=== PATIENT | female | born 1970 | race Caucasian/White ===

== ENCOUNTER 2016-09-22 10:30 | Emergency (ER) | payer OTHER ==
[~2016-09-22] VITALS: Ht 149.9 cm; Wt 39.5 kg
[2016-09-22] MEDS ORDERED: IPRATROPIUM 0.5MG/ALBUTEROL 2.5MG INH SOL UD 3ML (DUONEB)(J7620) NEB ONE (11:45)
--- NOTE | 2016-09-22 13:10 | REP ---
TWO VIEW CHEST: Two views of the chest are performed. Comparison: 06/09/2014 and 06/07/2012. There is no acute infiltrate. There is mild bibasilar interstitial fibrotic change. Somewhat nodular opacities seen along the left heart border 8 mm in diameter. Heart is normal in size. Mediastinal silhouette is otherwise unremarkable. There is mild curvature of the thoracic spine. IMPRESSION: No acute infiltrate. Possible 8 mm nodular opacity along the left heart border. Recommend followup CT of the chest. Signed by Lb Ghosh MD 09/23/2016 04:02 P
[2016-09-22] MEDS ORDERED: PROA1AER INH (13:25)
[2016-09-22] MEDS ORDERED: BENZ200C44 PO (13:25)
[2016-09-22] MEDS ORDERED: PRED20TA PO (13:25)
[2016-09-22 13:34] VITALS: BP 95/53
== END 2016-09-22 13:38 | disposition home or self-care (01) ==
LOC: M ED 11:46
DX: J41.0 Simple chronic bronchitis (principal); R91.1 Solitary pulmonary nodule; F17.210 Nicotine dependence, cigarettes, uncomplicated

== ENCOUNTER → 2016-09-30 | Outpatient (CLI) | payer OTHER ==
[~2016-09-30] MED LIST: BENZ200C44 PO; PRED20TA PO; PROA1AER INH
--- NOTE | 2016-09-30 08:57 | REP ---
Clinical: A 8 mm nodule suggested by a recent chest x-ray. Comparison: Chest x-ray dated 09/22/2016. Findings: Small foci of presumed scarring in the lingula corresponds to the suspected 8 mm nodule on recent chest x-ray and likely represents chronic change. There is a larger area of density in the medial right middle lobe measuring roughly 12 mm and likely represents chronic scarring as well although small active pathology cannot be excluded (images 74 - 82). The remainder of the bilateral lung cormier are well-aerated, symmetric and clear. No further consolidation, nodule or mass lesion is appreciated. Tracheobronchial tree is patent. No pleural effusion/reaction or pneumothorax. No obvious adenopathy. Mediastinum is grossly unremarkable by noncontrast evaluation. Surrounding musculoskeletal structures are intact. Impression: 8 mm nodular density presumed by a recent chest x-ray corresponds to small focal area of suspected chronic scarring. The 12 mm ill-defined area of density in the medial right middle lobe is also identified and while this likely represents scarring as well, active process cannot be excluded. Consider repeat chest CT in 3-6 months. Signed by Von Rios MD 09/30/2016 08:48 A
== END ==
LOC: M RAD 08:16
PROVIDERS: ATTEND Physician Assistant
DX: R91.1 Solitary pulmonary nodule (principal)

== ENCOUNTER → 2017-07-08 | Outpatient (CLI) | payer OTHER | LOC: M WUC 11:16 | DX: M51.36 Other intervertebral disc degeneration, lumbar region (principal); M51.37 Other intervertebral disc degeneration, lumbosacral region; M25.78 Osteophyte, vertebrae; M41.9 Scoliosis, unspecified | CPT/HCPCS: 72110 ==

== ENCOUNTER 2020-08-09 12:12 | Emergency (ER) | payer OTHER ==
[~2020-08-09] VITALS: Ht 149.9 cm; Wt 42.3 kg
[~2020-08-09 12:12] MED LIST changes: -BENZ200C44 PO; +BENZ200C70 PO; -PROA1AER INH; +PROAAER10 INH
--- NOTE | 2020-08-09 13:20 | REP ---
INDICATION: constipation vs obstruction. COMPARISON: None. TECHNIQUE: Abdomen series: Two views. FINDINGS: Upright view of the abdomen shows no evidence of free air. Air and stool is seen in the proximal and distal colon. There are few colonic air-fluid levels in the cecum and ascending colon. Formed stool appears to be present in the distal colon. No small bowel dilation is seen. There are surgical clips in right upper quadrant consistent with previous cholecystectomy. Flank stripes are intact. Psoas margins are obscured. No mass, organomegaly or pathologic calcification is seen. IMPRESSION: There are a few air-fluid levels in the right colon. Bowel gas pattern is otherwise unremarkable. No acute abnormality seen. <Electronically signed by Kong Chambers > 08/09/20 [id number]
[2020-08-09 14:03] LABS: BASO % 0.4 % (0.0-1.0); EOS # 0.5 10^3/uL (0.0-0.5); EOS % 4.1 % (0.0-3.0); HEMATOCRIT 40.8 % (36.0-47.0); HEMOGLOBIN 13.7 g/dl (12.0-15.5); LYMPH # 1.8 10^3/uL (1.5-5.0); LYMPH % 16.1 % (24.0-44.0); MEAN CORPUSCULAR HEMOGLOBIN 31.8 pg (27.0-33.0); MEAN CORPUSCULAR HGB CONC 33.6 g/dl (32.0-36.5); MEAN CORPUSCULAR VOLUME 94.7 fl (80.0-96.0); MONO # 0.5 10^3/uL (0.0-0.8); MONO % 4.2 % (2.0-8.0); NEUTROPHILS # 8.3 10^3/uL (1.5-8.5); NEUTROPHILS % 74.9 % (36.0-66.0); PLATELET COUNT, AUTOMATED 189 10^3/uL (150-450); RED BLOOD COUNT 4.31 10^6/uL (4.00-5.40); WHITE BLOOD COUNT 11.1 10^3/uL (4.0-10.0)
[2020-08-09] MEDS: GASTROGRAFIN SOLUTION 30ML PO SCH ×2 (14:13→14:45)
[2020-08-09 14:20] LABS: ALBUMIN 3.8 GM/DL (3.2-5.2); BILIRUBIN,DIRECT 0.2 MG/DL (0.0-0.2); BILIRUBIN,TOTAL 0.9 MG/DL (0.2-1.0); TOTAL PROTEIN 6.7 GM/DL (6.4-8.2)
[2020-08-09] MEDS ORDERED: NS 1,000 ML IV ONE (15:25)
[2020-08-09] MEDS ORDERED: ISOVUE-370 76% 100ML VIAL As Ordered ONE (15:26)
--- NOTE | 2020-08-09 16:13 | REP ---
INDICATION: abd pain, bloating, smoker--suspect sbo. COMPARISON: None. TECHNIQUE: Helical scanning is acquired following the intravenous injection of 92 mL of Isovue 370. Coronal and sagittal MPR images are generated in addition to 3 mm reformatted axial images. FINDINGS: Preliminary digital copy camera operator radiograph shows clips in right upper quadrant. Air-filled small and large bowel loops are seen throughout the abdomen. The lung bases are clear on axial CT images. Postcontrast acquisition demonstrates a normal sized liver and spleen. There are several hypervascular areas in the periphery of the right lobe of the liver consistent with hemangiomas. The largest of these measures 1.3 cm in greatest diameter. These are unchanged from comparison chest CT images dated November 01, 2018. No new focal liver lesion is seen. There are clips in gallbladder fossa post cholecystectomy. Normal adrenal glands are observed. No abnormality is noted in the pancreas. The kidneys enhance symmetrically and are morphologically intact. A noninflamed appendix is seen retrocecal in position. No uterine or ovarian abnormality is seen. Urinary bladder is intact. No abdominal wall defect is seen. Oral barium is seen opacifying unremarkable small bowel loops into the right lower quadrant and cecum. Liquid content is noted in the right colon. There is a mild amount of stool in the sigmoid colon. There is no evidence of large or small bowel obstruction. No free air is seen. No mass or abnormal fluid collection is observed. Normal caliber aorta. IMPRESSION: Air and fluid-filled loops of small intestine and large intestine question enteritis versus minimal ileus. No evidence of obstruction. Retrocecal a noninflamed appendix. Stable benign hemangiomas of the liver. <Electronically signed by Kong Chambers > 08/09/20 [id number]
[2020-08-09] MEDS ORDERED: FLEET OIL RETENTION ENEMA PR ONE (16:45)
[2020-08-09] MEDS ORDERED: LACT20EL PO (18:32)
[2020-08-09] MEDS ORDERED: SIME180C PO (18:32)
[2020-08-09 18:45] VITALS: BP 102/70
== END 2020-08-09 18:51 | disposition home or self-care (01) ==
LOC: M ED 12:12
DX: K59.00 Constipation, unspecified (principal); F17.200 Nicotine dependence, unspecified, uncomplicated; Z79.51 Long term (current) use of inhaled steroids; Z79.52 Long term (current) use of systemic steroids; Z79.899 Other long term (current) drug therapy
CPT/HCPCS: 74019; 74177; 80047; 80076; 85025; 96360; 99284; Q9963; Q9967

== ENCOUNTER → 2022-06-29 | Outpatient (CLI) | payer OTHER ==
[~2022-06-29] MED LIST changes: +LACT20EL PO; +SIME180C25 PO
== END ==
LOC: M LABSMTC 11:53
PROVIDERS: ATTEND Anesthesiology
DX: Z01.812 Encounter for preprocedural laboratory examination (principal); Z11.52 Encounter for screening for COVID-19

== ENCOUNTER 2022-07-02 08:30 | Day surgery (SDC) | payer OTHER ==
[~2022-07-02] VITALS: Ht 149.9 cm; Wt 45.5 kg
[~2022-07-02 08:30] MED LIST changes: +NS 1,000 ML IV ONE
[2022-07-02] MEDS ORDERED: propofoL 200 MG/20 ML VIAL As Ordered ONE (09:50)
[2022-07-02] MEDS ORDERED: propofoL 500 MG/50 ML VIAL As Ordered ONE (09:50)
[2022-07-02] MEDS ORDERED: LIDOCAINE 2% 100MG/5ML SDV (FOR ANES.) As Ordered ONE (09:50)
[2022-07-02 10:35] VITALS: BP 109/57
== END 2022-07-02 10:40 | disposition home or self-care (01) ==
LOC: M OPP 08:30
PROVIDERS: ATTEND Surgery
DX: R19.4 Change in bowel habit (principal); Z83.71 Family history of colonic polyps; F17.200 Nicotine dependence, unspecified, uncomplicated

== ENCOUNTER → 2023-10-07 | Outpatient (CLI) | payer OTHER ==
[~2023-10-07] MED LIST changes: -NS 1,000 ML IV ONE
== END ==
LOC: M RAD 15:15
PROVIDERS: ATTEND Advanced Practice Midwife
DX: N95.0 Postmenopausal bleeding (principal)

== ENCOUNTER → 2023-10-09 | Outpatient (REF) | payer OTHER | LOC: M SFHCWAGY 14:55 | PROVIDERS: ATTEND Advanced Practice Midwife | DX: N95.0 Postmenopausal bleeding (principal); Z12.4 Encounter for screening for malignant neoplasm of cervix; Z11.51 Encounter for screening for human papillomavirus (HPV); Z01.419 Encounter for gynecological examination (general) (routine) without abnormal findings; Z77.9 Other contact with and (suspected) exposures hazardous to health ==

== ENCOUNTER → 2025-04-28 | Outpatient (REF) | payer OTHER ==
[~2025-04-28] MED LIST changes: -SIME180C25 PO; +SIME1CAP4 PO
== END ==
LOC: M LAB REF 14:20
PROVIDERS: ATTEND Internal Medicine
DX: J12.9 Viral pneumonia, unspecified (principal)